=== PATIENT | male | born 1935 | race Caucasian/White ===

== ENCOUNTER 2016-04-27 11:44 | Day surgery (SDC) | payer MEDICARE, OTHER ==
[~2016-04-27 11:44] MED LIST: ADULT ASPIRIN81 MG PO; ADVAIR 2501 DISK W/D IH; ADVAIR HFA 115/12 GM IH; ADVAIR HFA 1151 PUFF INH; AMLODIPINE BES2.5 MG PO; AMLODIPINE BESY10 MG PO; ASPIR-LOW81 M1 PO; BACLOFEN10 M1 PO; BUPROPION HCL150 M PO; BYSTOLIC10 MG PO; CATAPRES-TTS 31 EACH TP; CATAPRES0.1 MG PO; CLONIDINE HCL0.1 MG PO; COUMADIN2 MG PO; COUMADIN2.5 MG PO; COUMADIN5 M1 PO; COUMADIN5 MG PO; COUMADIN7.5 MG PO; CPAP; DIOVAN160 M PO; EC-NAPROSYN500 MG PO; FINASTERIDE5 MG PO; FLECTOR30 EA TP; GLUCOPHAGE XR500 MG PO; HYDROCREAM28.4 G1 TP; HYTRIN1 MG PO; HYTRIN2 MG PO; IPRAT-ALBUT 0.5-3 ML INH; KEFLEX500 MG PO; LASIX20 MG PO; LASIX40 MG PO; LEVAQUIN500 MG PO; LIPITOR40 M1 PO; LOPRESSOR100 MG PO; METOPROLOL SUC100 MG PO; METOPROLOL SUCC50 MG PO; METRONIDAZOLE TP; MICRO-K 1010 MEQ PO; MIRALAX17 G2 PO; MIRALAX17 GM PO; MONOPRIL20 MG PO; MULTI VITAMIN1 EAC2 PO; MULTIPLE VITAM1 EACH PO; MULTIVITAMIN W/1 CAP PO; NAPROSYN500 MG PO; NEURONTIN100 MG PO; NORVASC10 MG PO; NORVASC5 M2 PO; NORVASC5 MG PO; OMEPRAZOLE20 M3 PO; POTASSIUM CHLO10 MEQ PO; PREDNISONE10 M1 PO; PRINIVIL10 M1 PO; PROAIR RESPICL90 MCG INH; PROSCAR5 M1 PO; PROSCAR5 MG PO; PROVENTIL17 GM IH; PROVENTIL17 GM INH; QUETIAPINE FUMA25 M1 PO; QUETIAPINE FUMA50 M1 PO; RESTORIL15 MG PO; ROLAIDS PO; SERTRALINE HCL50 M4 PO; SPIRIVA18 MC1 INH; SPIRIVA18 MCG IH; SPIRONOLACTONE25 M1 PO; TEKTURNA150 MG PO; TIMOPTIC-XE5 ML BOTH EYES; TIMOPTIC-XE5 ML OP; TIMOPTIC10 ML EACH EYE; TIMOPTIC2.5 ML OP; URISTAT95 MG PO; VENTOLIN HFA18 GM IH; VITAMIN C500 M3 PO; WELLBUTRIN SR150 M2 PO; WELLBUTRIN XL300 MG PO; ZANAFLEX4 M PO
[2016-04-27 13:12] LABS: BASO % 0.2 % (0-2); EOS % 1.5 % (0-7); EOSINOPHIL ABSOLUTE COUNT 0.2 tho/cmm (0.0-0.7); HCT-HEMATOCRIT 39.8 % (36.0-53.5); HGB-HEMOGLOBIN 13.2 gm/dl (13.5-17.0); IMMATURE GRANULOCYTES ABSOLUTE 0.02 tho/cmm (0-0.03); IMMATURE GRANULOCYTES PERCENT 0.2 % (0-0.3); LYMPH % 14.7 % (20-45); LYMPH ABSOLUTE COUNT 1.6 tho/cmm (0.8-4.5); MCH (MEAN CORPUSCULAR HGB) 28.6 pg (28.0-32.0); MCHC MEAN CORPUSCULAR HGB CONC 33.2 % (32.0-36.0); MCV (MEAN CELL VOLUME) 86.1 fl (82.0-96.0); MEAN PLATELET VOLUME 9.9 cmc (9.4-12.4); MONO % 9.4 % (0-12); NEUTROPHIL ABSOLUTE COUNT 8.2 tho/cmm (1.6-8.0); NEUTROPHIL-AUTOMATED 8.2 tho/cmm (1.6-8.0); PLATELET COUNT 198 tho/cmm (150-450); RED BLOOD COUNT 4.62 mil/cmm (4.40-5.70); RED CELL DISTRIBUTION WIDTH 14.8 % (12.4-16.4); WHITE BLOOD COUNT 11.1 tho/cmm (4.0-10.0)
[2016-04-27 13:15] LABS: URINE BILIRUBIN NEGATIVE (NEG); URINE BLOOD MODERATE (NEG); URINE GLUCOSE (UA) NEGATIVE (NEG); URINE KETONE NEGATIVE (NEG); URINE LEUKOCYTE ESTERASE POSITIVE (NEG); URINE NITRITE POSITIVE (NEG); URINE PROTEIN MODERATE (NEG); URINE SPECIFIC GRAVITY 1.015 (1.003-1.030)
[2016-04-27 13:17] LABS: URINE APPEARANCE CLOUDY; URINE COLOR YELLOW
[2016-04-27 13:18] LABS: URINE OTHER VOLUME 4 ML
[2016-04-27 13:21] LABS: ANION GAP 9 mmol/L (0-20); BLOOD UREA NITROGEN 17 mg/dl (6-24); CALCIUM 8.2 mg/dl (8.5-10.5); CARBON DIOXIDE-VENOUS 33 mmol/L (22-32); CHLORIDE 98 mmol/l (96-110); GLUCOSE 106 mg/dL (70-110); SODIUM 136 mmol/L (135-145); eGFR VALUE FOR BLACK >90 mL/Min
[2016-04-27 13:25] LABS: URINE BACTERIA 3+; URINE EPITHELIAL CELLS RARE /[HPF] (0-10); URINE MUCUS 1+; URINE WBC FULL FIELD /[HPF] (0-5)
== END 2016-04-27 18:40 ==
LOC: SRG 11:44 → SHSC 11:45 → ORW 14:25 → PACU 15:24 → SHSC 15:50
PROVIDERS: Urology
PROC: 0TF7XZZ Fragmentation in Left Ureter, External Approach (ICD-10-PCS; principal; 2016-04-27)
DX: N20.1 Calculus of ureter (principal); I10 Essential (primary) hypertension; F41.9 Anxiety disorder, unspecified; F32.9 Major depressive disorder, single episode, unspecified; J44.9 Chronic obstructive pulmonary disease, unspecified; G47.30 Sleep apnea, unspecified; Z79.52 Long term (current) use of systemic steroids; Z79.82 Long term (current) use of aspirin; Z79.899 Other long term (current) drug therapy; Z88.5 Allergy status to narcotic agent; Z88.8 Allergy status to other drugs, medicaments and biological substances; Z86.718 Personal history of other venous thrombosis and embolism; Z87.11 Personal history of peptic ulcer disease; Z87.891 Personal history of nicotine dependence; Z90.49 Acquired absence of other specified parts of digestive tract; Z90.89 Acquired absence of other organs; Z89.421 Acquired absence of other right toe(s); Z98.890 Other specified postprocedural states
CPT/HCPCS: J1956